=== PATIENT | female | born 1935 | race Caucasian/White ===

== ENCOUNTER 2016-10-29 13:00 | Observation (INO) | payer MEDICARE ==
[~2016-10-29] VITALS: Ht 152.4 cm; Wt 85.9 kg
[~2016-10-29 13:00] MED LIST: AMLO5TAB96 PO; ATOR20TA PO; CLON.1 PO; HYDR-2768 PO; LISI40TA PO; MELO15TA2 PO; METF500 PO; POTA-243 PO; PROT40TA PO; RANI150 PO; REST30CA PO; STOO100T PO; TRAM50 PO; VITA200017 PO
[2016-10-29 13:02] VITALS: BP 180/77; PULSE 90; RESP 20; TEMP 98; O2SAT 99
[2016-10-29] MEDS ORDERED: MORPHINE SULFATE 8 MG/ML INJ IV PUSH ONE ×2 (15:30→18:00)
[2016-10-29] MEDS ORDERED: PANTOPRAZOLE SODIUM 40 MG VIAL IV PUSH ONE (15:30)
[2016-10-29] MEDS ORDERED: SODIUM CHLORIDE 0.9% FLUSH 10 ML FLUSH IV FLUSH PRN (15:30)
[2016-10-29] MEDS ORDERED: ONDANSETRON HCL 4 MG/2 ML VIAL IV PUSH ONE (15:30)
[2016-10-29] MEDS ORDERED: DIATRIZOATE MEGLUM/DIATRIZOATE SOD 9 ML CUP ONE (15:38)
[2016-10-29 16:11] LABS: AUTOMATED NEUTROPHIL # 11.7 TH/MM3 (1.8-7.7); BASOPHIL % 0.3 % (0.0-2.0); EOSINOPHIL % 0.3 % (0.0-4.0); HEMATOCRIT 38.1 % (35.0-46.0); HEMO FLAGS DIFF FINAL; LYMPH % 8.7 % (9.0-44.0); LYMPHOCYTE # 1.2 TH/MM3 (1.0-4.8); MEAN CELL VOLUME 85.8 FL (80.0-100.0); MEAN CORPUSCULAR HEMOGLOBIN 27.6 PG (27.0-34.0); MEAN CORPUSCULAR HGB CONC 32.2 % (32.0-36.0); MONO % 6.1 % (0.0-8.0); NEUT % 84.6 % (16.0-70.0); PLATELET COUNT 221 TH/MM3 (150-450); RED BLOOD COUNT 4.44 MIL/MM3 (4.00-5.30); RED CELL DISTRIBUTION WIDTH 13.4 % (11.6-17.2); WHITE BLOOD COUNT 13.8 TH/MM3 (4.0-11.0)
[2016-10-29 16:25] LABS: ALT (GPT) 19 U/L (10-53); ANION GAP 11 MEQ/L (5-15); AST (GOT) 15 U/L (15-37); BICARBONATE 24.7 MEQ/L (21.0-32.0); BLOOD UREA NITROGEN 14 MG/DL (7-18); CHLORIDE 101 MEQ/L (98-107); GLOMERULAR FILTRATION RATE 56 ML/MIN (>89); SODIUM (NA) 137 MEQ/L (136-145)
[2016-10-29 16:27] LABS: ALKALINE PHOSPHATASE 94 U/L (45-117); TOTAL BILIRUBIN ADULT 0.5 MG/DL (0.2-1.0)
[2016-10-29] MEDS ORDERED: METFORMIN HOLD POST IV CONTRAST SCH (17:00)
[2016-10-29 17:09] LABS: BLOOD, URINE NEG (NEG); COMMENT (UR) CULT NOT INDICATED; CULTURE IF INDICATED CULT NOT INDICATED; GLUCOSE,URINE NEG (NEG); KETONE, URINE NEG (NEG); NITRITE,URINE NEG (NEG); SQUAMOUS EPITHELIAL CELL URINE <1 /hpf (0-5); URINE COLOR LIGHT-YELLOW (YELLW/STRAW)
--- NOTE | 2016-10-29 17:21 | PD ---
HPI Chief Complaint: Abdominal Pain Time Seen by Provider: 14:46 (Shaneka Dey MD) Travel History International Travel<30 days: No Contact w/Intl Traveler<30days: No Traveled to known affect area: No (Shaneka Dey MD) History of Present Illness HPI This is a 81-year-old female patien the past medical history of hypertension and hyperlipidemia presents with a complaint of recurrent episodes of abdominal pain. She states she has been diagnosed with gallstones in the past and is scheduled for elective removal of her gallbladder this coming November. She noticed severe pain last night without nausea vomiting that was continuous and radiating to the back. She denies fever and chills and notes a mild decrease in appetite. (Shaneka Dey MD) PFSH Past Medical History Arthritis: Yes Autoimmune Disease: No Blood Disorders: No Cancer: No Cardiovascular Problems: Yes Diabetes: No Diminished Hearing: No Endocrine: No Glaucoma: No Genitourinary: No Hepatitis: No Hiatal Hernia: No Hypertension: Yes Immune Disorder: No Musculoskeletal: No Neurologic: No Psychiatric: No Respiratory: No Thyroid Disease: No Tetanus Vaccination: < 5 Years Influenza Vaccination: Yes (Shaneka Dey MD) Past Surgical History Abdominal Surgery: No Cardiac Surgery: No Ear Surgery: No Endocrine Surgery: No Eye Surgery: Yes (BILATERAL CATARACTS) Genitourinary Surgery: No Gynecologic Surgery: No Joint Replacement: Yes (BILATERAL HIP REPLACEMENTS-) Oral Surgery: No Thoracic Surgery: Yes (LEFT BREAST BIOPSY) Tonsillectomy: Yes (1952) (Shaneka Dey MD) Social History Alcohol Use: No Tobacco Use: No Substance Use: No (Shaneka Dey MD) Allergies-Medications (Allergen,Severity, Reaction): Coded Allergies: Codeine (Verified Allergy, Severe, FACIAL SWELLING, ITCHING, RASH(DR. TAPIA AWARE OF IT), 11/07/16) 06/25/04: DR TAPIA AWARE OF CODEINE ALLERGY. OK TO CONTINUE LORTAB Reported Meds & Prescriptions Reported Meds & Active Scripts Active (Candice Engle MD) Review of Systems ROS Limitations: Clinical Condition General / Constitutional: No: Fever, Chills, Weight Gain, Weight Loss, Other Eyes: No: Diploplia, Blurred Vision, Photophobia, Drainage, Redness, Foreign Body Sensation, Pain, Tearing, Blind Spots, Visual changes, Blindness, Other HENT: No: Headaches, Vertigo, Lightheadedness, Sore Throat, Rhinitis, Rhinorrhea, Congestion, Nosebleed, Neck Stiffness, Neck Pain, Masses, Gingival Bleeding, Dental Difficulties, Ear Discharge, Earache, Other Cardiovascular: No: Chest Pain or Discomfort, Palpitations, Irregular Rhythm, Tachycardia, Diaphoresis, Syncope, Dyspnea on exertion, Varicosities, Edema, Cyanosis, Varicosities, Phlebitis, Claudication, Other Respiratory: No: Cough, Shortness of Breath, Wheezing, Sneezing, Orthopnea, Hemoptysis, Stridor, Night Sweats, Pleuritic Pain, Other Gastrointestinal: Positive: Abdominal Pain, No: Nausea, Vomiting, Diarrhea, Hematemesis, Hematochezia, Constipation, Changes in Bowel Habits, Indigestion, Dysphagia, Loss of Appetite, Other Genitourinary: No: Urgency, Frequency, Dysuria, Nocturia, Hematuria, Decreased Urinary Output, Oliguria, Hesitancy, Dribbling, Incontinence, Pelvic Pain, Flank Pain, Dyspareunia, Discharge, Dysmenorrhea, Menorrhagia, Metorrhagia, Vaginal Bleeding, Other Musculoskeletal: No: Myalgias, Arthralgias, Limited ROM, Weakness, Cramping, Edema, Pain, Atrophy, Other Skin: No Rash, No Itching, No Dryness, No Lumps, No Hives, No Change in Pigmentation, No Change in nails, No Alopecia, No Lesions, No Breast Lumps, No Breast Tenderness, No Breast Swelling, No Other Neurologic: No: Weakness, Dizziness, Syncope, Focal Abnormalities, Coordination Problem, Tremor, Ataxia, Headache, Change in Mentation, Slurred Speech, Paresthesia, Incontinence, Seizures, Sensory Disturbance, Other Psychiatric: No: Anxiety, Depression, Suicidal Ideations, Disorder of Thought, Mood Disorder, Substance Abuse, Homicidal Ideation, Other Endocrine: No: Heat Intolerance, Cold Intolerance, Polyuria, Polydipsia, Other Hematologic/Lymphatic: No: Easy Bruising, Lymph Node Enlargement, Other (Shaneka Dey MD) Physical Exam Exam Limitations: Intoxication Narrative GENERAL: Elderly white female who appears to be in no acute distress SKIN: Focused skin assessment warm/dry.no lesions no cyanosis no erythema HEAD: Atraumatic. Normocephalic. EYES: Pupils equal and round and reactive . No scleral icterus. No injection or drainage. ENT: No nasal bleeding or discharge. Mucous membranes pink and moist. NECK: Trachea midline. No JVD. CARDIOVASCULAR: S1-S2 appreciated. Regular rate and rhythm. No murmur appreciated. Pulses normal throughout. RESPIRATORY: No accessory muscle use. Clear to auscultation. Breath sounds equal bilaterally. GASTROINTESTINAL: Abdomen soft, positive right upper quadrant and epigastric tenderness nondistended. Hepatic and splenic margins not palpable. Bowel sounds normal. No peritoneal signs. MUSCULOSKELETAL: No obvious deformities. No clubbing. No cyanosis. No edema. NEUROLOGICAL: Awake and alert and oriented 3.. No obvious cranial nerve deficits. Motor and sensory exam grossly within normal limits. Normal speech. No meningeal signs. PSYCHIATRIC: Appropriate mood and affect; insight and judgment normal. No suicidal or homicidal ideation. (Shaneka Dey MD) Data Data Orders Complete Blood Count With Diff (10/29/16 15:21) Comprehensive Metabolic Panel (10/29/16 15:21) Lipase (10/29/16 15:21) Urinalysis - C+S If Indicated (10/29/16 15:21) Ua Includes Microscopic (10/29/16 15:21) Ct Abd/Pel W Iv Contrast(Rout) (10/29/16 15:21) Iv Access Insert/Monitor (10/29/16 15:21) Ecg Monitoring (10/29/16 15:21) Oximetry (10/29/16 15:21) Sodium Chloride 0.9% Flush (Ns Flush) (10/29/16 15:30) Morphine Inj (Morphine Inj) (10/29/16 15:30) Ondansetron Inj (Zofran Inj) (10/29/16 15:30) Pantoprazole Inj (Protonix Inj) (10/29/16 15:30) Oral Contrast - Adult (10/29/16 15:35) Diatrizoate Liq ( Gastroview Liq) (10/29/16 15:38) Potassium Chlor 10 Meq Premix (Kcl 10 Me (10/29/16 17:30) Potassium Chlor 10 Meq Premix (Kcl 10 Me (10/29/16 17:30) Iohexol 350 Inj (Omnipaque 350 Inj) (10/29/16 17:41) Blood Culture (10/29/16 17:52) Piperacil-Tazo 2.25 Gm Premix (Zosyn 2.2 (10/29/16 18:00) Morphine Inj (Morphine Inj) (10/29/16 18:00) Promethazine Inj (Phenergan Inj) (10/29/16 18:45) Us Abdomen Gallbladder (10/29/16 ) Consult General Surgery (10/29/16 ) Admit Order (Ed Use Only) (10/29/16 ) (Candice Engle MD) [facility] Medical Decision Making Medical Screen Exam Complete: Yes Emergency Medical Condition: Yes Medical Record Reviewed: Yes Interpretation(s) White cell count 13,[address] scan of the abdomen shows a large gallstone also shows a large renal cyst UA has small leukocyte Potassium 3.0 Differential Diagnosis Differential diagnoses intractable abdominal pain : Cholelithiasis acute cholecystitis renal cyst urinary tract infection leukocytosis hypokalemia Narrative Course 81-year-old female with a history of gallstones who has been having continual pain recently. She is already scheduled for an elective cholecystectomy with Dr. Bradford. Patient will noted severe pain last p.m. patient denies nausea and vomiting and fever. Patient tender in the epigastrium and right upper quadrant so CAT scan performed to assess for any other etiology of the abdominal tenderness, at scan revealed the kidney stone and also a renal cyst. Cell count 13,000 with a left shift. Serum medicated twice with narcotic analgesics and a dose of antiemetic medication. UA is positive for leukocyte potassium 3.[address] Bradford general surgeon who wants patient to be admitted for observation to the medicine service and he will assess the patient tomorrow. We'll call Avery fisher primary care physician to admit patient to his service. We'll order a repeat ultrasound to look for evidence of acute cholecystitis. 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 (Candice Engle MD) Physician Communication Physician Communication Dr Sanchez Ramey (Shaneka Dey MD) Diagnosis Primary Impression: Intractable abdominal pain Additional Impressions: acute cholelithiasis Leukocytosis Urinary tract infection affecting care of mother in first trimester, antepartum Urinary tract infection Admitting Information Admitting Physician Requests: Admit (Shaneka Dey MD) Scripts Hydrocodone-Acetaminophen ([place])5-325 mg Tab1 Tab PO Q4H PRN (PAIN) #15 TAB Ref 0 Prov:Marcos Cruz MD 10/30/16 Condition: Stable Shaneka Dey MD Oct 29, 2016 17:21 Candice Engle MD Nov 07, 2016 17:31 (ALT/SGPT) Alkaline Phosphatase 94 U/L Total Protein 7.7 GM/DL Albumin 3.7 GM/DL Lipase 123 U/L White Blood Count 13.8 TH/MM3 Red Blood Count 4.44 MIL/MM3 Hemoglobin 12.3 GM/DL Hematocrit 38.1 % Mean Corpuscular Volume 85.8 FL Mean Corpuscular Hemoglobin 27.6 PG Mean Corpuscular Hemoglobin 32.2 % Concent Red Cell Distribution Width 13.4 % Platelet Count 221 TH/MM3 Mean Platelet Volume 9.9 FL Neutrophils (%) (Auto) 84.6 % Lymphocytes (%) (Auto) 8.7 % Monocytes (%) (Auto) 6.1 % Eosinophils (%) (Auto) 0.3 % Basophils (%) (Auto) 0.3 % Neutrophils # (Auto) 11.7 TH/MM3 Lymphocytes # (Auto) 1.2 TH/MM3 Monocytes # (Auto) 0.8 TH/MM3 Eosinophils # (Auto) 0.0 TH/MM3 Basophils # (Auto) 0.0 TH/MM3 CBC Comment DIFF FINAL Differential Comment Urine Color LIGHT-YELLOW Urine Turbidity CLEAR Urine pH 7.0 Urine Specific [place] 1.004 Urine Protein NEG mg/dL Urine Glucose (UA) NEG mg/dL Urine Ketones NEG mg/dL Urine Occult Blood NEG Urine Nitrite NEG Urine Bilirubin NEG Urine Urobilinogen LESS THAN 2.0 MG/DL Urine Leukocyte Esterase SMALL Urine RBC LESS THAN 1 /hpf Urine WBC 2 /hpf Urine Squamous Epithelial <1 /hpf Cells Microscopic Urinalysis Comment CULT NOT INDICATED MDM Medical Decision Making Medical Screen Exam Complete: Yes Emergency Medical Condition: Yes Medical Record Reviewed: Yes Interpretation(s) White cell count 13,[address] scan of the abdomen shows a large gallstone also shows a large renal cyst UA has small leukocyte Potassium 3.0 Differential Diagnosis Differential diagnoses intractable abdominal pain : Cholelithiasis acute cholecystitis renal cyst urinary tract infection leukocytosis hypokalemia Narrative Course 81-year-old female with a history of gallstones who has been having continual pain recently. She is already scheduled for an elective cholecystectomy with Dr. Bradford. Patient will noted severe pain last p.m. patient denies nausea and vomiting and fever. Patient tender in the epigastrium and right upper quadrant so CAT scan performed to assess for any other etiology of the abdominal tenderness, at scan revealed the kidney stone and also a renal cyst. Cell count 13,000 with a left shift. Serum medicated twice with narcotic analgesics and a dose of antiemetic medication. UA is positive for leukocyte potassium 3.[address] Bradford general surgeon who wants patient to be admitted for observation to the medicine service and he will assess the patient tomorrow. We'll call Avery fisher primary care physician to admit patient to his service. We'll order a repeat ultrasound to look for evidence of acute cholecystitis. Physician Communication Physician Communication Dr Sanchez Ramey Diagnosis Primary Impression: Intractable abdominal pain Additional Impressions: acute cholelithiasis Leukocytosis Urinary tract infection affecting care of mother in first trimester, antepartum Urinary tract infection Admitting Information Admitting Physician Requests: Admit Condition: Stable Shaneka Dey MD Oct 29, 2016 17:21
[2016-10-29] MEDS ORDERED: POTASSIUM CHLOR 10 MEQ PREMIX 100 ML IV ONE ×2 (17:30)
[2016-10-29] MEDS ORDERED: IOHEXOL 350 MG/ML 10 ML VIAL (for RAD DIAG) IV ONE (17:41)
[2016-10-29] MEDS ORDERED: PIPERACIL-TAZO 2.25 GM PREMIX 50 ML IV ONE (18:00)
--- NOTE | 2016-10-29 18:03 | RADRPT ---
EXAM DATE/TIME: 10/29/2016 17:15 [facility] COMPARISON: CT ABDOMEN & PELVIS W CONTRAST, July 11, 2009, 17:17. INDICATIONS : Right upper qaudrant pain. IV CONTRAST: 95 cc Omnipaque 350 (iohexol) IV ORAL CONTRAST: Partial prescribed oral contrast ingested. RADIATION DOSE: 26.67 CTDIvol (mGy) MEDICAL HISTORY : Cardiovascular disease. Hypertension. SURGICAL HISTORY : ENCOUNTER: Initial ACUITY: 1 day PAIN SCALE: 10/10 LOCATION: Right upper quadrant TECHNIQUE: Volumetric scanning of the abdomen and pelvis was performed. Using automated exposure control and ad justment of the mA and/or kV according to patient size, radiation dose was kept as low as reasonably achievable to obtain optimal diagnostic quality images. DICOM format image data is available electro nically for review and comparison. FINDINGS: LOWER LUNGS: The visualized lower lungs are clear. LIVER: Homogeneous density without lesion. There is no dilation of the biliary tree. Large calcified gallst one in the gallbladder measuring or 3.7 x 2 cm. Gallbladder is distended but otherwise unremarkable b y CT. SPLEEN: Normal size without lesion. PANCREAS: Within normal limits. KIDNEYS: Redemonstration of multiple right-sided renal cysts with a dominant large cyst in the mid to superior measuring 10.5 x 10.1 x 11.0 cm. This appears mildly enlarged in size compared to remote prior exam measuring 8.3 x 8.3 cm. Kidneys otherwise demonstrate symmetric enhancement without evidence for hydr onephrosis. ADRENAL GLANDS: Within normal limits. VASCULAR: There is no aortic aneurysm. BOWEL/MESENTERY: Small to moderate amount of stool throughout the colon. No evidence for bowel obstruction. No signifi cant bowel wall thickening. ABDOMINAL WALL: Redemonstration of a fat containing small periumbilical anterior abdominal hernia. RETROPERITONEUM: There is no lymphadenopathy. BLADDER: Decompressed bladder. Evaluation limited by beam hardening artifact. REPRODUCTIVE: Redemonstration of leiomyomatous uterus INGUINAL: There is no lymphadenopathy or hernia. MUSCULOSKELETAL: No lytic or blastic bony lesions. Bilateral hip arthroplasties in place. CONCLUSION: 1. Large dominant right renal cyst measuring up to 11 cm. Large renal cysts can be symptomatic. Percu taneous cyst aspiration may be performed for symptom improvement as clinically warranted. 2. 3.7 cm calcified gallstone with mild gallbladder distention. Otherwise, gallbladder unremarkable b y CT. Further evaluation may be performed with ultrasound exam if there is concern regarding cholecys titis. 3. Small fat-containing periumbilical anterior abdominal wall hernia. Clifford Schneider MD on October 29, 2016 at 17:50 Board Certified Radiologist. This report was verified electronically.
[2016-10-29 18:24] VITALS: BP 165/89; PULSE 88; RESP 16; O2SAT 99
[2016-10-29] MEDS ORDERED: PROMETHAZINE INJ 25 MG/ML VIAL IM ONE (18:45)
--- NOTE | 2016-10-29 19:25 | RADRPT ---
EXAM DATE/TIME: 10/29/2016 18:46 [facility] COMPARISON: CT ABDOMEN & PELVIS W CONTRAST, October 29, 2016, 17:15. INDICATIONS : Right upper quadrant pain. MEDICAL HISTORY : Hypertension. Gastroesophageal reflux disease. Arthritis. Gastrointestinal disorders. SURGICAL HISTORY : Tonsillectomy. Left breast biopsy. ENCOUNTER: Initial ACUITY: 1 month PAIN SCORE: 8/10 LOCATION: Right upper quadrant MEASUREMENTS: LIVER: 14.7 cm length COMMON DUCT: 4 mm RIGHT KIDNEY: 8.5 x 5.5 x 4.4 cm FINDINGS: LIVER: Normal echotexture without focal lesion or ductal dilatation. COMMON DUCT: No intraluminal mass or stone visualized. GALLBLADDER: Echogenic foci are seen in the neck of the gallbladder. PANCREAS: The visualized portions are within normal limits. RIGHT KIDNEY: Multiple large right renal cyst, the largest measuring 10 cm. apparent CONCLUSION: Gallstones. There is no specific tenderness over the gallbladder. Mike Delgadillo MD FACR on October 29, 2016 at 19:22 Board Certified Radiologist. This report was verified electronically.
[2016-10-29 20:24] VITALS: BP 156/74; PULSE 89; RESP 16; O2SAT 98
[2016-10-29] MEDS ORDERED: TEMAZEPAM 15 MG CAP PO PRN (22:00)
[2016-10-29] MEDS ORDERED: KETOROLAC TROMETHAMINE 30 MG/ML (IVP) VIAL IV PUSH ONE (22:00)
[2016-10-29] MEDS ORDERED: ONDANSETRON HCL 4 MG/2 ML VIAL IV PUSH PRN (22:00)
[2016-10-29] MEDS ORDERED: MORPHINE SULFATE 4 MG/ML INJ IV PUSH PRN (22:00)
--- NOTE | 2016-10-29 22:10 | HHI.HP ---
HPI Service [facility] Hospitalists Primary Care Physician Avery Ramey MD Admission Diagnosis Symptomatic Cholelithiasis, r/o cholecystitis Chief Complaint: abd pain with radiation to back, RUQ pain Travel History International Travel<30 Days: No Contact w/Intl Traveler <30 Da: No Traveled to Known Affected Are: No History of Present Illness This is a 81-year-old female patient with past medical history of hypertension, hyperlipidemia and known cholelithiasis presents with a complaint of recurrent episodes of abdominal pain. She states she has been diagnosed with gallstones in the past and is scheduled for elective removal of her gallbladder in late November. She has had a total of 3 biliary colic episodes over the last 2 months. Her first episode occurred after she ate a fatty meal. The last 2 episodes have not necessarily been associated with fatty food intake. The current episode started last night. She noticed severe pain last night without nausea vomiting that was continuous and radiating to the back. She denies fever and chills and notes a mild decrease in appetite. She continued to have pain throughout the day so she came to the ER. She feels better now since getting some IV fluid and pain medication. Denies any abdominal trauma. Review of Systems Constitutional: DENIES: Diaphoretic episodes, Fatigue, Fever, Weight gain, Weight loss, Chills, Dizziness, Change in appetite, Night Sweats Endocrine: DENIES: Abnorml menstrual pattern, Heat/cold intolerance, Polydipsia , Polyuria, Polyphagia Eyes: DENIES: Blurred vision, Diplopia, Eye inflammation, Eye pain, Vision loss , Photosensitivity, Double Vision Ears, nose, mouth, throat: DENIES: Tinnitus, Hearing loss, Vertigo, Nasal discharge, Oral lesions, Throat pain, Hoarseness, Ear Pain, Running Nose, Epistaxis, Sinus Pain, Toothache, Odynophagia Respiratory: DENIES: Apneas, Cough, Snoring, Wheezing, Hemoptysis, Sputum production, Shortness of breath Cardiovascular: DENIES: Chest pain, Palpitations, Syncope, Dyspnea on Exertion , PND, Lower Extremity Edema, Orthopnea, Claudication Gastrointestinal: COMPLAINS OF: Abdominal pain, GERD, Nausea, DENIES: Black stools, Bloody stools, BRB per rectum, Constipation, Diarrhea, Reflux, Vomiting , Difficulty Swallowing, Anorexia, See HPI Musculoskeletal: COMPLAINS OF: Joint pain, Back pain Hematologic/lymphatic: DENIES: Bruising, Lymphadenopathy Immunologic/allergic: DENIES: Eczema, Urticaria Neurologic: DENIES: Abnormal gait, Headache, Localized weakness, Paresthesias, Seizures, Speech Problems, Tremor, Poor Balance Psychiatric: COMPLAINS OF: Anxiety Past Family Social History Past Medical History Cholelithiasis diagnosed approximately 2 months ago Chronic kidney disease stage III Fatty liver GERD Hypertension Hyperlipidemia Hypothyroidism Lumbar radiculopathy Type 2 diabetes Past Surgical History History of breast biopsy for intraductal hyperplasia History of removal of a breast cyst on the left History of cataract surgery History of right knee surgery 1996 History of laparoscopic repair of umbilical hernia in 2009 History of tonsillectomy and adenoidectomy Total right hip replacement 2001 Reported Medications Amlodipine 5 mg twice a day Aspirin 81 mg a day Atorvastatin 20 mg daily Clonidine 0.1 mg twice a day Vitamin D 3000 units daily Hydrochlorothiazide 25 mg a day Levothyroxine 25 g a day Lisinopril 40 mg a day Metformin 500 mg twice a day\ Pantoprazole 40 mg a day Potassium 10 mEq 2 tablets 3 times a day Ranitidine 150 mg daily Temazepam 30 mg at bedtime as needed for sleep Toviaz 4 mg at bedtime Tramadol 50 mg 3 times a day as needed for pain Allergies: Coded Allergies: Codeine (Verified Allergy, Severe, FACIAL SWELLING, ITCHING, RASH(DR. TAPIA AWARE OF IT), 10/29/16) 06/25/04: DR TAPIA AWARE OF CODEINE ALLERGY. OK TO CONTINUE LORTAB Family History Noncontributory Social History Lives with her of 61 years Was previously a supervisor payroll in the business department at [employer] No tobacco in 40 years prior to that smoked less than half pack per day neckline no alcohol Denies illicit drug use Physical Exam Vital Signs Vital Signs Date Time Temp Pulse Resp B/P Pulse Ox O2 Delivery O2 Flow Rate FiO2 10/29/16 20:24 89 16 156/74 98 10/29/16 18:24 88 16 165/89 99 10/29/16 13:02 98.0 90 20 180/77 99 Room Air Physical Exam GENERAL: This is a well-nourished, well-developed patient, in no apparent distress. Alert and oriented. SKIN: No rashes, ecchymoses or lesions. Cool and dry. HEAD: Atraumatic. Normocephalic. No temporal or scalp tenderness. EYES: Pupils equal round and reactive. Extraocular motions intact. No scleral icterus. No injection or drainage. ENT: Nose without bleeding, purulent drainage or septal hematoma. Airway patent. NECK: Trachea midline. No JVD or lymphadenopathy. Supple, nontender, no meningeal signs. CARDIOVASCULAR: Regular rate and rhythm without murmurs, gallops, or rubs. RESPIRATORY: Clear to auscultation. Breath sounds equal bilaterally. No wheezes , rales, or rhonchi. GASTROINTESTINAL: Abdomen soft, nondistended. Mild tenderness to palpation in the right upper quadrant epigastric area. No guarding. No rebound. MUSCULOSKELETAL: Extremities without clubbing, cyanosis, or edema. No joint tenderness, effusion, or edema noted. No calf tenderness. NEUROLOGICAL: Awake and alert. Cranial nerves II through XII intact. Motor and sensory grossly within normal limits. Five out of 5 muscle strength in all muscle groups. Normal speech. Laboratory Laboratory Tests Test 10/29/16 10/29/16 10/29/16 15:25 15:35 16:00 Sodium Level 137 Potassium Level 3.0 Chloride Level 101 Carbon Dioxide Level 24.7 Anion Gap 11 Blood Urea Nitrogen 14 Creatinine 0.95 Estimat Glomerular Filtration 56 Rate Random Glucose 105 Calcium Level 9.3 Total Bilirubin 0.5 Aspartate Amino Transf 15 (AST/SGOT) Alanine Aminotransferase 19 (ALT/SGPT) Alkaline Phosphatase 94 Total Protein 7.7 Albumin 3.7 Lipase 123 White Blood Count 13.8 Red Blood Count 4.44 Hemoglobin 12.3 Hematocrit 38.1 Mean Corpuscular Volume 85.8 Mean Corpuscular Hemoglobin 27.6 Mean Corpuscular Hemoglobin 32.2 Concent Red Cell Distribution Width 13.4 Platelet Count 221 Mean Platelet Volume 9.9 Neutrophils (%) (Auto) 84.6 Lymphocytes (%) (Auto) 8.7 Monocytes (%) (Auto) 6.1 Eosinophils (%) (Auto) 0.3 Basophils (%) (Auto) 0.3 Neutrophils # (Auto) 11.7 Lymphocytes # (Auto) 1.2 Monocytes # (Auto) 0.8 Eosinophils # (Auto) 0.0 Basophils # (Auto) 0.0 CBC Comment DIFF FINAL Differential Comment Urine Color LIGHT-YELLOW Urine Turbidity CLEAR Urine pH 7.0 Urine Specific [place] 1.004 Urine Protein NEG Urine Glucose (UA) NEG Urine Ketones NEG Urine Occult Blood NEG Urine Nitrite NEG Urine Bilirubin NEG Urine Urobilinogen LESS THAN 2.0 Urine Leukocyte Esterase SMALL Urine RBC LESS THAN 1 Urine WBC 2 Urine Squamous Epithelial <1 Cells Microscopic Urinalysis Comment CULT NOT INDICATED Date/Time Procedure Status Source Growth 10/29/16 18:45 Aerobic Blood Culture Received Blood Line Pending 10/29/16 18:45 Anaerobic Blood Culture Received Blood Line Pending Result Diagram: 10/29/16 1535 10/29/16 1525 Imaging Last 72 hours Impressions Abdomen/Pelvis CT 10/29/16 1521 Signed Impressions: Service Date/Time: Thursday, October 29, 2016 17:15 - CONCLUSION: 1. Large dominant right renal cyst measuring up to 11 cm. Large renal cysts can be symptomatic. Percutaneous cyst aspiration may be performed for symptom improvement as clinically warranted. 2. 3.7 cm calcified gallstone with mild gallbladder distention. Otherwise, gallbladder unremarkable by CT. Further evaluation may be performed with ultrasound exam if there is concern regarding cholecystitis. 3. Small fat-containing periumbilical anterior abdominal wall hernia. Clifford Schneider MD Gall Bladder Ultrasound 10/29/16 0000 Signed Impressions: Service Date/Time: Thursday, October 29, 2016 18:46 - CONCLUSION: Gallstones. There is no specific tenderness over the gallbladder. Mike Delgadillo MD FACR Assessment and Plan Problem List: (1) Intractable abdominal pain Status: Acute Plan: She has noted cholelithiasis however no other finding on exam to support significant gallbladder dysfunction. We'll have surgery see the patient tomorrow. CT and ultrasound noted. She also has a large right renal cyst which may contribute to some of her back pain. Provide pain medication. (2) Cholelithiasis Status: Acute Plan: Management per surgery. (3) Renal cyst, acquired, right Status: Chronic Plan: As noted above this may be contributing to her back pain. If symptoms persist may entertain draining the cyst. (4) Hypothyroidism Status: Chronic Plan: Continue medication (5) Hypertension Status: Chronic Plan: Continue medication. (6) Hyperlipidemia Status: Chronic Plan: Continue medication. (7) Diabetes mellitus Status: Chronic Plan: Bedside glucose will be checked. We'll not initiate sliding scale insulin at this point as A1c was 5.9 in September. Code Status Full Discussed Condition With Patient and ER physician. Problem Qualifiers (1) Diabetes mellitus: Shaquille Humphreys MD PhD Oct 29, 2016 22:10
[2016-10-29 23:00] VITALS: BP 176/70; PULSE 77; RESP 18; TEMP 97.6; O2SAT 96
[2016-10-30 04:00] VITALS: BP 133/58; PULSE 64; RESP 20; TEMP 98.1; O2SAT 94
[2016-10-30] MEDS ORDERED: LEVOTHYROXINE SODIUM 25 MCG TAB PO SCH (06:00)
[2016-10-30 08:00] VITALS: BP 175/68; PULSE 68; RESP 18; TEMP 98.2; O2SAT 97
[2016-10-30] MEDS ORDERED: OXYBUTYNIN CHLORIDE 5 MG TAB PO SCH (09:00)
[2016-10-30] MEDS ORDERED: PANTOPRAZOLE SOD 40 MG DELAYED RELEASE TAB PO SCH (09:00)
[2016-10-30] MEDS ORDERED: ATORVASTATIN 20 MG TAB PO SCH (09:00)
[2016-10-30] MEDS ORDERED: LISINOPRIL 20 MG TAB PO SCH (09:00)
[2016-10-30] MEDS ORDERED: amLODIPine BESYLATE 5 MG TAB PO SCH (09:00)
[2016-10-30] MEDS ORDERED: POTASSIUM CHLORIDE 10 MEQ CONTROLLED RELEASE TAB PO SCH (09:00)
--- NOTE | 2016-10-30 09:15 | HHI.PR ---
Subjective Remarks no pain wants to go home Objective Vitals heart reg lung cta abd s/nt,. no sam ext no edema Vital Signs Date Time Temp Pulse Resp B/P Pulse Ox O2 Delivery O2 Flow Rate FiO2 10/30/16 04:00 98.1 64 20 133/58 94 10/29/16 23:00 97.6 77 18 176/70 96 10/29/16 20:24 89 16 156/74 98 10/29/16 18:24 88 16 165/89 99 10/29/16 13:02 98.0 90 20 180/77 99 Room Air Result Diagram: 10/29/16 1535 10/29/16 1525 Imaging Last 72 hours Impressions Abdomen/Pelvis CT 10/29/16 1521 Signed Impressions: Service Date/Time: Saturday, October 29, 2016 17:15 - CONCLUSION: 1. Large dominant right renal cyst measuring up to 11 cm. Large renal cysts can be symptomatic. Percutaneous cyst aspiration may be performed for symptom improvement as clinically warranted. 2. 3.7 cm calcified gallstone with mild gallbladder distention. Otherwise, gallbladder unremarkable by CT. Further evaluation may be performed with ultrasound exam if there is concern regarding cholecystitis. 3. Small fat-containing periumbilical anterior abdominal wall hernia. Clifford Schneider MD Gall Bladder Ultrasound 10/29/16 0000 Signed Impressions: Service Date/Time: Saturday, October 29, 2016 18:46 - CONCLUSION: Gallstones. There is no specific tenderness over the gallbladder. Mike Delgadillo MD FACR A/P Problem List: (1) Intractable abdominal pain Status: Acute Plan: gallbladder dysfunction large stone no obstruction or acute cholecystitis spoke with Dr Hair. No abx needed at this point. pt wants to go home. she is already scheduled for lap naheed but if another attack then call office to get it out sooner. (2) Cholelithiasis Status: Acute Plan: Management per surgery. (3) Renal cyst, acquired, right Status: Chronic Plan: As noted above this may be contributing to her back pain. If symptoms persist may entertain draining the cyst. (4) Hypothyroidism Status: Chronic Plan: Continue medication (5) Hypertension Status: Chronic Plan: Continue medication. (6) Hyperlipidemia Status: Chronic Plan: Continue medication. (7) Diabetes mellitus Status: Chronic Problem Qualifiers (1) Diabetes mellitus: Anthony,Marcos L MD Oct 30, 2016 09:15
[2016-10-30] MEDS ORDERED: NORC5TAB PO (09:16)
--- NOTE | 2016-10-30 09:16 | HHI.DCPOC ---
Discharge Care Plan Diagnosis: (1) Dysfunctional gallbladder Goals to Promote Your Health * To prevent worsening of your condition and complications * To maintain your health at the optimal level Directions to Meet Your Goals Take your medications as prescribed Follow your dietary instruction Follow activity as directed Keep your appointments as scheduled Take your immunizations and boosters as scheduled If your symptoms worsen call your PCP, if no PCP go to Urgent Care Center or Emergency Room Smoking is Dangerous to Your Health. Avoid second hand smoke Call the 24-hour hour crisis hotline for domestic abuse at Marcos Cruz MD Oct 30, 2016 09:16
[2016-10-30] MEDS ORDERED: TEMA30CA PO (10:48)
[2016-10-30] MEDS ORDERED: METF500T PO (10:48)
[2016-10-30] MEDS ORDERED: LISI40TA PO (10:48)
[2016-10-30] MEDS ORDERED: CLON0.1T PO (10:48)
[2016-10-30] MEDS ORDERED: AMLO5TAB2 PO (10:48)
[2016-10-30] MEDS ORDERED: PANT40TA3 PO (10:48)
[2016-10-30] MEDS ORDERED: LEVO25TA4 PO (10:48)
[2016-10-30] MEDS ORDERED: RANI150T PO (10:48)
[2016-10-30] MEDS ORDERED: K-TA10TA PO (10:48)
[2016-10-30] MEDS ORDERED: TOVI4TAB PO (10:48)
[2016-10-30] MEDS ORDERED: TRAM50TA PO (10:48)
[2016-10-30] MEDS ORDERED: HYDR25TA5 PO (10:48)
[2016-11-06] MEDS ORDERED: ASPI81CH CHEW (10:17)
[2016-11-07] MEDS ORDERED: OXYC1TAB63 PO (10:18)
== END 2016-10-30 10:06 | disposition home or self-care (01) ==
LOC: NEPC 13:00 → NEDA 19:29 → N05A 22:02
PROVIDERS: ADMIT Hospitalist; ATTEND Hospitalist
DX: N39.0 Urinary tract infection, site not specified (principal); I12.9 Hypertensive chronic kidney disease with stage 1 through stage 4 chronic kidney disease, or unspecified chronic kidney disease; E78.5 Hyperlipidemia, unspecified; N28.1 Cyst of kidney, acquired; K80.10 Calculus of gallbladder with chronic cholecystitis without obstruction; E03.9 Hypothyroidism, unspecified; N18.3 Chronic kidney disease, stage 3 (moderate); E11.22 Type 2 diabetes mellitus with diabetic chronic kidney disease; K21.9 Gastro-esophageal reflux disease without esophagitis; K76.0 Fatty (change of) liver, not elsewhere classified; M54.16 Radiculopathy, lumbar region
CPT/HCPCS: 74177; 76705; 80053; 81001; 82948; 83690; 85025; 87040; 96365; 96375; 96376; 99285; C9113; G0378; J1885; J2270; J2405; J2543; J3010; J3480; Q9963; Q9967

== ENCOUNTER → 2016-11-07 | Day surgery (SDC) | payer MEDICARE ==
[~2016-11-07] VITALS: Ht 152.4 cm; Wt 81.5 kg
[~2016-11-07] MED LIST changes: +*morphine SULFATE 8 MG/ML PERIprocedure ONLY ONE; +ACETAMINOPHEN 1000 MG/100 ML VIAL IV ONE; +ACETAMINOPHEN 1000 MG/100 ML VIAL IV SCH; +AMLO5TAB2 PO; -AMLO5TAB96 PO; +ASPI81CH CHEW; -ATOR20TA PO; +BUPIVACAINE/EPINEPHRINE 0.25% 50 ML VIAL ONE; +CHLORHEXIDINE GLUCONATE 2 % 1 PACK (2 CLOTHS) TOPICAL PRN; -CLON.1 PO; +CLON0.1T PO; +DEXAMETHASONE SOD PHOS 4 MG/ML VIAL ONE; +DO NOT ADM ANY ANTICOAGULANT DRUGS PRN; +FAMOTIDINE 20 MG/2 ML VIAL ONE; -HYDR-2768 PO; +HYDR25TA5 PO; +INSULIN HUMAN REGULAR 1,000 UNITS/10 ML VIAL SQ PRN; +K-TA10TA PO; +LACTATED RINGER'S 1000 ML IV PRN; +LEVO25TA4 PO; -MELO15TA2 PO; -METF500 PO; +METF500T PO; +METOPROLOL TARTRATE 25 MG TAB PO PRN; +MIDAZOLAM HCL 2 MG/2 ML VIAL ONE; +MORPHINE SULFATE 4 MG/ML INJ IV PRN; +NORC5TAB PO; +ONDANSETRON HCL 4 MG/2 ML VIAL IV PRN; +ONDANSETRON HCL 4 MG/2 ML VIAL IV PUSH ONE; +OXYC1TAB63 PO; +PANT40TA3 PO; -POTA-243 PO; +POVIDONE IODINE 5% (ANTISEPSIS KIT) 4 APPLICATIONS EACH NARE PRN; +PROPOFOL 200 MG/20 ML AMP IV ONE; -PROT40TA PO; -RANI150 PO; -REST30CA PO; +SODIUM CHLORID 0.9% 500 ML IV PRN; +SODIUM CHLORIDE 0.9% FLUSH 10 ML FLUSH IV FLUSH PRN; +SODIUM CHLORIDE 0.9% FLUSH 10 ML FLUSH IV FLUSH SCH; -STOO100T PO; +SUGAMMADEX SODIUM 200 MG/2 ML VIAL IV PUSH ONE; +TEMA30CA PO; +TOVI4TAB PO; -TRAM50 PO; +TRAM50TA PO; -VITA200017 PO; +ceFAZolin 2 GM PREMIX 50 ML IV SCH; +ceFAZolin 2 GM PREMIX 50 ML ONE; +metroNIDAZOLE 500 MG INJ 100 ML IV ONE; +metroNIDAZOLE 500 MG INJ 100 ML IV SCH; +oxyCODONE/ACETAMINOPHEN 5 MG/325 MG TAB PO PRN
[2016-11-07 08:04] VITALS: BP 149/79; PULSE 76; RESP 16; TEMP 98.4; O2SAT 97
--- NOTE | 2016-11-07 10:24 | PD.OP ---
cc: Omar Castro MD Operative Report Date of Surgery: Nov 07, 2016 Preoperative Diagnosis: (1) Cholelithiasis Postoperative Diagnosis: (1) Cholelithiasis Procedure: Laparoscopic cholecystectomy Lysis of adhesions Anesthesia: ELLI Surgeon: Omar Castro Hose Mender(s): Laura CARMICHAELII Operation and Findings: Complications: None apparent EBL: 10 cc Operative findings: The patient had previous repair of umbilical hernia. There appears to be a polypropylene mesh in place with adhesions throughout basically entire area of the mesh. The abdomen was entered in the left upper quadrant and some adhesions in the right upper quadrant were carefully taken down. The gallbladder was enlarged and had a very large gallstones. Procedure in detail: The patient was taken to the operating room and placed in the supine position. General endotracheal anesthesia was induced. The abdomen was prepped and draped in usual sterile fashion and a surgical timeout was performed to verify correct patient procedure and site. Appropriate perioperative antibiotics were administered. Local anesthetic was injected in the skin and subcutaneous tissue in the left upper quadrant and a 5 mm incision created. The abdomen was entered using the Optiview 5 mm trocar with direct laparoscopic visualization. The abdomen was then insufflated to 15 mmHg with CO2 gas which the patient tolerated well. There were noted to be adhesions throughout the area of the previously placed apparent polypropylene mesh. The entire mid abdomen had adhesions. I was able to place a 5 mm port in the right upper quadrant and then a 12 mm port in the epigastrium. Using these ports with blunt and sharp dissection some adhesions to the mesh in the right upper quadrant were taken down. There was enough room to place another 5 mm port as the camera port. One more port was then placed in the right lateral abdomen. The patient was placed in reverse Trendelenburg position and turned slightly to the left. Attention was turned to the right upper quadrant and the dome of the gallbladder was grasped and retracted cephalad. The infundibulum was retracted laterally to expose Calot's triangle. Blunt dissection and judicious use of electrocautery was used to expose the cystic duct directly entering the gallbladder. Two clips were placed proximally on each of these structures and one distally and they were transected. The gallbladder was enlarged and had very large gallstones. There were posterior cystic artery branches which were carefully delineated and clipped proximally and transected distally. There was bleeding from an arterial branch which was grasped with a [place] dissector and a clip placed with appropriate hemostasis. Some blood in the right upper quadrant was suctioned in the right upper quadrant was copiously irrigated. The gallbladder was then removed from the liver bed using electrocautery. The gallbladder was then removed from the abdomen using an Endo Catch bag. The clips were in place on the cystic duct and cystic artery stumps with no bleeding or bile leakage. At this point, the abdomen was allowed to desufflate and trochars were removed. The fascia at the 12 mm port site was closed with 0 Vicryl suture. Skin was closed with subcuticular 4-0 Monocryl as well as Dermabond. The patient tolerated the procedure well and was extubated and taken to PACU in stable condition. All sponge and instrument counts were correct. Omar Castro MD Nov 07, 2016 10:24
[2016-11-07 11:46] VITALS: BP 142/70; PULSE 53; RESP 18; TEMP 96; O2SAT 99
== END | disposition home or self-care (01) ==
LOC: HSDC 07:33
PROVIDERS: ATTEND Surgery
DX: K80.10 Calculus of gallbladder with chronic cholecystitis without obstruction (principal); I12.9 Hypertensive chronic kidney disease with stage 1 through stage 4 chronic kidney disease, or unspecified chronic kidney disease; N18.3 Chronic kidney disease, stage 3 (moderate); E78.5 Hyperlipidemia, unspecified; E03.9 Hypothyroidism, unspecified; K21.9 Gastro-esophageal reflux disease without esophagitis; E11.22 Type 2 diabetes mellitus with diabetic chronic kidney disease; M54.16 Radiculopathy, lumbar region; L40.9 Psoriasis, unspecified; M19.90 Unspecified osteoarthritis, unspecified site; E66.9 Obesity, unspecified
CPT/HCPCS: 00790; 47562; 88304; 94150; J0131; J0690; J1100; J2250; J2270; J2405; J3010